=== PATIENT | male | born 1950 | race African-American/Black ===

== ENCOUNTER 2020-02-26 00:01 | Emergency (ER) | payer MEDICARE ==
[2020-02-26 01:56] LABS: Basophils % (Auto) 0.7 % (0.0-1.8); Eosinophils # (Auto) 0.3 K/mm3 (0.0-0.4); Eosinophils % (Auto) 3.7 % (0.0-4.3); Hematocrit 47.5 % (35.5-45.6); Hemoglobin 16.8 gm/dl (11.8-15.2); Lymphocytes % (Auto) 43.2 % (13.4-35.0); Mean Corpuscular HGB Conc 35 % (32-34); Mean Corpuscular Volume 99 fl (84-94); Monocytes # (Auto) 0.8 K/mm3 (0.0-0.8); Monocytes % (Auto) 11.9 % (0.0-7.3); Platelet Count 140 K/mm3 (140-440); Red Blood Count 4.81 M/mm3 (3.65-5.03); Red Cell Distribution Width 12.8 % (13.2-15.2)
[2020-02-26 02:07] LABS: BUN/Creatinine Ratio 18; Blood Urea Nitrogen 16 mg/dL (9-20); Calcium 9.1 mg/dL (8.4-10.2); Hemolysis Index 7
[2020-02-26] MEDS ORDERED: ONDANSETRON 4 MG/2 ML INJ IV ONE (04:45)
[2020-02-26] MEDS ORDERED: SODIUM CHLORIDE 0.9% 1000 ML 1,000 ML IV ONE (04:45)
--- NOTE | 2020-02-26 06:37 | Emergency Department Report ---
HPI - General Chief Complaint: Nausea/Vomiting/Diarrhea Time Seen by Provider: 02/26/20 06:06 - HPI HPI: This is a 69-year-old male who presents to the emergency department with a complaint of feeling "sick" since yesterday that includes a subjective fever, nausea and vomiting. The patient has not taken anything for symptoms prior to arrival. There has been no further vomiting since arrival to the emergency department but he still says that he feels nauseated. He denies any past medical history. No recent travel or sick contacts at home. He does not have a primary care physician. He denies any chest pain, abdominal pain, back pain, shortness of breath, constipation or diarrhea, dysuria. ED Past Medical Hx - Past Medical History Previous Medical History?: No - Surgical History Past Surgical History?: No - Social History Smoking Status: Current Every Day Smoker Substance Use Type: None - Medications Home Medications: Home Medications Medication Instructions Recorded Confirmed Last Taken Type Ondansetron [Zofran Odt] 4 mg PO Q8HR PRN #15 tab.rapdis 02/26/20 Unknown Rx ED Review of Systems ROS: Stated complaint: VOMITING Other details as noted in HPI Comment: All other systems reviewed and negative Constitutional: fever (Subjective), other (Fatigue) Eyes: denies: eye pain, vision change ENT: denies: ear pain, throat pain Respiratory: denies: cough, shortness of breath Cardiovascular: denies: chest pain, palpitations Gastrointestinal: nausea, vomiting. denies: abdominal pain, diarrhea, co nstipation Genitourinary: denies: dysuria, discharge Musculoskeletal: denies: back pain, arthralgia Skin: denies: rash, lesions Neurological: denies: headache, weakness Physical Exam - Physical Exam Vital Signs: Vital Signs 02/26/20 01:08 Temperature 97.2 F L Pulse Rate 101 H Respiratory 20 Rate Blood Pressure 134/82 O2 Sat by Pulse 98 Oximetry Physical Exam: GENERAL: The patient is well-developed well-nourished. HENT: Normocephalic. Atraumatic. Patient has moist mucous membranes. EYES: Extraocular motions are intact. NECK: Supple. Trachea is midline. CHEST/LUNGS: Clear to auscultation. There is no respiratory distress noted. HEART/CARDIOVASCULAR: Regular. There is no tachycardia. ABDOMEN: Abdomen is soft, nontender. Patient has normal bowel sounds. SKIN: Skin is warm and dry. NEURO: The patient is awake, alert, and cooperative. The patient has no focal neurologic deficits. MUSCULOSKELETAL: There is no tenderness or deformity. There is no limitation range of motion. ED Course Vital Signs 02/26/20 01:08 Temperature 97.2 F L Pulse Rate 101 H Respiratory 20 Rate Blood Pressure 134/82 O2 Sat by Pulse 98 Oximetry - Reevaluation(s) Reevaluation #1: 02/26/20 09:36 Lab Results 02/26/20 02/26/20 02/26/20 Range/Units 01:45 01:45 06:43 WBC 7.1 (4.5-11.0) K/mm3 RBC 4.81 (3.65-5.03) M/mm3 Hgb 16.8 H (11.8-15.2) gm/dl Hct 47.5 H (35.5-45.6) % MCV 99 H (84-94) fl MCH 35 H (28-32) pg MCHC 35 H (32-34) % RDW 12.8 L (13.2-15.2) % Plt Count 140 (140-440) K/mm3 Lymph % (Auto) 43.2 H (13.4-35.0) % Brown % (Auto) 11.9 H (0.0-7.3) % Eos % (Auto) 3.7 (0.0-4.3) % Baso % (Auto) 0.7 (0.0-1.8) % Lymph # (Auto) 3.0 (1.2-5.4) K/mm3 Brown # (Auto) 0.8 (0.0-0.8) K/mm3 Eos # (Auto) 0.3 (0.0-0.4) K/mm3 Baso # (Auto) 0.0 (0.0-0.1) K/mm3 Seg Neutrophils % 40.5 (40.0-70.0) % Seg Neutrophils # 2.9 (1.8-7.7) K/mm3 Sodium 138 (137-145) mmol/L Potassium 4.7 (3.6-5.0) mmol/L Chloride 100.2 (98-107) mmol/L Carbon Dioxide 27 (22-30) mmol/L Anion Gap 16 mmol/L BUN 16 (9-20) mg/dL Creatinine 0.9 (0.8-1.3) mg/dL Estimated GFR > 60 ml/min BUN/Creatinine Ratio 18 % Glucose 77 (75-100) mg/dL Calcium 9.1 (8.4-10.2) mg/dL Total Bilirubin 0.70 (0.1-1.2) mg/dL Direct Bilirubin 0.3 H (0-0.2) mg/dL Indirect Bilirubin 0.4 mg/dL AST 86 H (5-40) units/L ALT 49 (7-56) units/L Alkaline Phosphatase 107 (35-129) units/L Total Protein 8.8 H (6.3-8.2) g/dL Albumin 3.7 L (3.9-5) g/dL Albumin/Globulin Ratio 0.7 % Lipase 208 H (13-60) units/L Plasma/Serum Alcohol (0-0.07) % 02/25/ Range/Units 06:43 WBC (4.5-11.0) K/mm3 RBC (3.65-5.03) M/mm3 Hgb (11.8-15.2) gm/dl Hct (35.5-45.6) % MCV (84-94) fl MCH (28-32) pg MCHC (32-34) % RDW (13.2-15.2) % Plt Count (140-440) K/mm3 Lymph % (Auto) (13.4-35.0) % Brown % (Auto) (0.0-7.3) % Eos % (Auto) (0.0-4.3) % Baso % (Auto) (0.0-1.8) % Lymph # (Auto) (1.2-5.4) K/mm3 Brown # (Auto) (0.0-0.8) K/mm3 Eos # (Auto) (0.0-0.4) K/mm3 Baso # (Auto) (0.0-0.1) K/mm3 Seg Neutrophils % (40.0-70.0) % Seg Neutrophils # (1.8-7.7) K/mm3 Sodium (137-145) mmol/L Potassium (3.6-5.0) mmol/L Chloride (98-107) mmol/L Carbon Dioxide (22-30) mmol/L Anion Gap mmol/L BUN (9-20) mg/dL Creatinine (0.8-1.3) mg/dL Estimated GFR ml/min BUN/Creatinine Ratio % Glucose (75-100) mg/dL Calcium (8.4-10.2) mg/dL Total Bilirubin (0.1-1.2) mg/dL Direct Bilirubin (0-0.2) mg/dL Indirect Bilirubin mg/dL AST (5-40) units/L ALT (7-56) units/L Alkaline Phosphatase (35-129) units/L Total Protein (6.3-8.2) g/dL Albumin (3.9-5) g/dL Albumin/Globulin Ratio % Lipase (13-60) units/L Plasma/Serum Alcohol < 0.01 (0-0.07) % ED Medical Decision Making - Lab Data Result diagrams: 02/26/20 01:45 02/26/20 01:45 - Medical Decision Making This patient presented overnight with a complaint of generalized illness and it appears that the main complaint was nausea with vomiting. On examination the patient does not appear in any acute distress. The abdomen is soft, nondistended and nontoxic in appearance. Heart and lung sounds are normal to auscultation. Patient's labs are mostly unremarkable including CBC, metabolic panel and blood alcohol level, except for an elevated AST level and elevated and nonspecific lipase level. Patient was given some IV fluid resuscitation and a dose of an antiemetic. There has been no further nausea or vomiting throughout his ED course. The patient was reexamined multiple times over multiple hours and still denies any abdominal pain, and does not appear to have any abdominal discomfort to palpation. He will be discharged home to follow-up with a primary care physician and gastroenterology. He will return to the emergency department with any worsening of his symptoms or with any acute distress. Critical Care Time: No Critical care attestation.: If time is entered above; I have spent that time in minutes in the direct care of this critically ill patient, excluding procedure time. ED Disposition Clinical Impression: Elevated liver enzymes, Elevated lipase Nausea & vomiting Qualifiers: Vomiting type: unspecified Vomiting Intractability: non-intractable Qualified Code(s): R11.2 - Nausea with vomiting, unspecified Disposition: DC- TO HOME OR SELFCARE Is pt being admited?: No Condition: Stable Instructions: Acute Nausea and Vomiting (ED) Additional Instructions: Please follow-up with a primary care physician in the next few days. I am giving you a referral for a local supervisor assembly, Dr. Rios, to follow-up regarding your elevated liver enzyme and elevated pancreatic enzyme. Return to the emergency department with any worsening of your symptoms, new or concerning symptoms not addressed during this current emergency department visit, or with any acute distress. Prescriptions: Ondansetron [Zofran Odt] 4 mg PO Q8HR PRN #15 tab.rapdis PRN Reason: Nausea Referrals: PRIMARY CAREMD [Primary Care Provider] - 3-5 Days LION RIOS MD [Staff Physician] - 3-5 Days Time of Disposition: 08:30
[2020-02-26 07:05] LABS: Albumin 3.7 g/dL (3.9-5); Bilirubin,Direct 0.3 mg/dL (0-0.2)
[2020-02-26] MEDS ORDERED: MECLIZINE 25 MG TAB PO ONE (09:48)
--- NOTE | 2020-02-26 10:37 | Cat Scan Report ---
CT head/brain wo con INDICATION / CLINICAL INFORMATION: 69 years Male; dizziness. TECHNIQUE: Thin cut axial images obtained. Sagittal and coronal reconstructions performed. All CT scans at this location are performed using CT dose reduction for ALARA by means of automated exposure control. COMPARISON: None available. FINDINGS: Multiple high density lesions are seen both supra and infratentorially. Asymmetrically prominent numb er are noted in the posterior fossa, resulting in mass effect. This finding results in compression of the inferior fourth ventricle, in the region of the foramen of Magendie and Luschka, resulting in ob structive hydrocephalus. The lateral ventricles, third ventricle, cerebral aqueduct, and upper fourth ventricle are dilated. Some component of transependymal flow of CSF cannot be excluded in the perive ntricular white matter. The single largest lesion appears to be in the middle/inferior frontal gyral region on the right, fe suring up to 2.8 cm in maximum dimension. Significant surrounding vasogenic edema noted. Some component of white matter disease is suspected. Orbits and surrounding soft tissues are grossly normal. Mild mucosal thickening seen in the ethmoids and left sphenoid sinus. IMPRESSION: 1. Findings concerning for metastatic disease as described above, resulting in obstructive hydrocepha eduardo. Signer Name: Og Steele MD, III Signed: 02/26/2020 10:32 AM Workstation Name: [id number]
[2020-02-26] MEDS ORDERED: levETIRAcetam 1000 MG/NS 0.75% 1,000 MG/100 ML BAG IV ONE (11:08)
[2020-02-26] MEDS ORDERED: dexAMETHasone 20 MG/5 ML VIAL IV ONE (11:08)
[2020-02-26 17:25] VITALS: BP 103/61
== END 2020-02-26 17:30 | disposition other institution (70) ==
LOC: ED 00:01
DX: R11.2 Nausea with vomiting, unspecified (principal); R94.5 Abnormal results of liver function studies; R74.8 Abnormal levels of other serum enzymes; R51.9 Headache, unspecified; F17.200 Nicotine dependence, unspecified, uncomplicated; Z79.899 Other long term (current) drug therapy
CPT/HCPCS: 36415; 70450; 80048; 80076; 83690; 85025; 93005; 96361; 96374; 96375; 99285; J1100; J1953; J2405; J7030; 80320; G0480